=== PATIENT | female | born 1950 | race Caucasian/White ===

== ENCOUNTER → 2017-07-10 10:19 | Outpatient (CLI) | payer MEDICARE, OTHER, SELFPAY ==
--- NOTE | 2017-07-10 10:23 | HPBI_ITS ---
MAMMOGRAPHY - BILATERAL SCREENING REASON FOR EXAM: Female, 66 years old. Routine annual screening examination. PERTINENT HISTORY: Non-contributory. TECHNIQUE: Digital bilateral breast julio (3D mammographic acquisition) in the CC and MLO projections. 2-D mediolateral oblique (MLO) and craniocaudad (CC) views of both breasts were obtained. CAD: Full Field Digital Mammography with Computer Added Detection was performed. COMPARISON: Comparison is made with prior study dated March 07, 2016 and November 17, 2014. FINDINGS: Breast Composition: The breasts are almost entirely fatty. There are no dominant masses or suspicious calcifications. Stable benign-appearing bilateral axillary lymph nodes. No other significant abnormalities are identified. There has been no significant change since the prior study. HPBI/SCREENING MAMM (CAD), BILAT IMPRESSION: Stable bilateral screening mammogram. Yearly follow-up mammogram recommended. (A) ASSESSMENT CATEGORY: BIRADS Category 2: Benign. A letter regarding these results will be sent to the patient by the facility within 30 days. Approximately 10% of breast cancers are not detected by mammography. A normal mammogram should not delay biopsy of a clinically suspicious abnormality. [id number] Electronically Signed: Robert Rascon MD at 11:40 EST Tel [phone], Service support ,
== END ==
PROVIDERS: Family Provider Internal Medicine; PCP Internal Medicine; Visit Provider Obstetrics & Gynecology
DX: Z12.31 Encounter for screening mammogram for malignant neoplasm of breast (principal)
CPT/HCPCS: 77063; 77067

== ENCOUNTER → 2017-07-10 13:58 | Outpatient (CLI) | payer MEDICARE, OTHER, SELFPAY ==
[2017-07-14 11:21] LABS: HPV Reflexed? NOT INDICATED
== END ==
PROVIDERS: Visit Provider Obstetrics & Gynecology
DX: Z12.31 Encounter for screening mammogram for malignant neoplasm of breast (principal); Z12.4 Encounter for screening for malignant neoplasm of cervix
CPT/HCPCS: 77063; 77067; 88175; G0145

== ENCOUNTER → 2018-07-19 09:54 | Outpatient (CLI) | payer MEDICARE, OTHER, SELFPAY ==
--- NOTE | 2018-07-19 10:00 | BD_ITS ---
STUDY: DUAL ENERGY X-RAY ABSORPTIOMETRY / DXA REASON FOR EXAM: Female, 67 years old. The patient is postmenopausal. Loss of height. TECHNIQUE: Bone Mineral Density (BMD) measurements of lumbar spine and bilateral hips were obtained. COMPARISON: Comparison is made with prior examination dated August 06, 2008. FINDINGS: Lumbar Spine (L1-L4): g/cm2 (1.544) / T-score (3.2) / Z-score (4.8) Findings are suggestive of normal bone density with a low fracture risk. Left Femur Total: g/cm2 (1.034) / T-score (0.2) / Z-score (1.5) Left Femoral Neck: g/cm2 (1.039) / T-score (0.0) / Z-score (1.5) Right Femur Total: g/cm2 (1.122) / T-score (0.9) / Z-score (2.2) Right Femoral Neck: g/cm2 (0.982) / T-score (-0.4) / Z-score (1.1) The T-Scores on the most recent prior examination were: Lumbar Spine (L1-L4): There has been improvement of bone density since the previous examination. Left Femur Total: which represents a worsening of 8.6%. Right Femur Total: which represents a worsening of 5%. BD/Dexa Bone Density Study IMPRESSION: The patient is considered normal as outlined below according to World Olu Organization (WHO) criteria with a low fracture risk. There has been worsening of bone density since the previous examination. Reference Information: The T-score is the number of standard deviations above or below the standard which is normal for young adults at their peak bone mineral density. The World Health Organization (WHO) interprets the T-scores as follows: Above -1 Normal bone density Between -1 and -2.5 Osteopenia Equal to / or below -2.5 Osteoporosis As a practical clinical guideline, osteopenia may be graded as follows: Mild -1 through -1.5 Moderate -1.6 through -2.0 Severe -2.1 through -2.4 The Z-score is the number of standard deviations above or below age-matched controls. A Z-score of less than -1.5 would be considered abnormal. References: 1. NIH Osteoporosis and Related Bone Diseases http://www.osteo.org 2. International Society for Clinical Densitometry http://www.iscd.org 3. National Osteoporosis Foundation http://www.nof.org Electronically Signed: Robert Rascon, at 9:19 EST , Service support ,
== END ==
PROVIDERS: Family Provider Internal Medicine; PCP Internal Medicine; Visit Provider Orthopaedic Surgery
DX: M85.88 Other specified disorders of bone density and structure, other site (principal)
CPT/HCPCS: 77080

== ENCOUNTER 2019-01-02 23:50 | Emergency (ER) | payer MEDICARE, OTHER, SELFPAY ==
[2019-01-02 23:52] VITALS: BP 156/88; PULSE 83; RESP 18; TEMP 35.8; BMI 27.5
--- NOTE | 2019-01-03 00:17 | CT_ITS ---
STUDY: CT ABDOMEN AND PELVIS WITH CONTRAST REASON FOR EXAM: Female, 68 years old. left lower quadrant pain. RADIATION DOSAGE (If Supplied By Facility): CTDIvol = ( 15.14 ) mGy, DLP = ( 870.06 ) mGycm TECHNIQUE: Transaxial images were obtained from the dome of the diaphragm to the symphysis pubis without oral contrast. 100 IV Isovue 370 was administered. Sagittal and coronal images were reconstructed. Individualized dose optimization techniques were used for this CT. COMPARISON: None. FINDINGS: The visualized lung bases are unremarkable. The visualized portions of the heart are within normal limits. Normal liver. Normal gallbladder and extrahepatic biliary system. Normal spleen. Normal pancreas. Normal bilateral adrenal glands. Normal right kidney. There is mild left-sided hydronephrosis and hydroureter probably due to recently passed stone. There is perirenal fat stranding may represent pyelonephritis. Normal visualized stomach. Normal small intestine. Normal colon. The appendix is visualized and appears normal. There is diffuse atherosclerotic calcification of the abdominal aorta, without a demonstrated aneurysm. Normal inferior vena cava. Normal retroperitoneum. Normal urinary bladder. Normal abdominal wall. There are diffuse degenerative changes of the visualized lumbar spine. CT/Abdomen/Pelvis W IV Cont ONLY IMPRESSION: There is mild left-sided hydronephrosis and hydroureter probably due to recently passed stone. There is perirenal fat stranding may represent pyelonephritis. Electronically Signed: Jose Gloria, at 1:48 EDT Tel , Service support ,
[2019-01-03] MEDS: Ondansetron 4 MG/2 ML Vial IV (00:30)
[2019-01-03 00:32] LABS: Mucous, Urine 0 SEEN /hpf (<or=2+)
[2019-01-03 00:33] LABS: Absolute Lymphocyte Count 2.09 X10^3/uL (0.83-4.51); Absolute Neutrophil Count 11.6 X10^3/uL (2.0-7.7); Basophil# 0.07 X10^3/uL; Basophil% 0.5 % (0-1); Eosinophil# 0.21 X10^3/uL; Eosinophils% 1.4 % (0-5); Hematocrit 42.6 % (37-47); Hemoglobin 14.1 g/dL (12.0-15.0); Lymphocyte # 2.09 X10^3/ul (4.0); Lymphocyte % 14.3 % (19-41); Mean Corp Hgb Conc 33.1 g/dL (32-36); Mean Corpuscular Hgb 29.7 pg (27.0-32.0); Mean Corpuscular Volume 89.9 fL (81-99); Mean Platelet Vol. 9.3 fl (6.2-12.0); Monocyte# 0.62 X10^3/uL; Monocyte% 4.2 % (0-10); NRBC Flagged by Analyzer 0 % (0-5); Neutrophil # 11.57 X10^3/uL (2.7-7.7); Neutrophil % 79.1 % (47-70); Platelet Count 298 K/mm3 (150-450); RBC Distribution Width CV 15.9 % (11.6-14.6); RBC Distribution Width SD 53.1 fl (35.1-43.9); Red Blood Count 4.74 M/mm3 (4.2-5.4); White Blood Count 14.6 K/mm3 (4.4-11.0)
[2019-01-03 00:33] LABS: Color, Urine Yellow (Yellow); Glucose, Dipstick Normal (Normal); Ketone-Dipstick Negative (Negative); Leukocyte Esterase-Dipstick 25 /ul (Negative); Nitrite-Dipstick Negative (Negative); Occult Blood-Urine 50 /ul (Negative); Protein-Dipstick 15 mg/dl (Negative); Urine Bilirubin Dipstick Negative (Negative); Urine Clarity Clear (Clear); Urine Urobilinogen Normal (Normal)
--- NOTE | 2019-01-03 00:37 | ED.RN ---
PT DECLINED MORPHINE FOR NOW SAYING HER PAIN IMPROVED.
[2019-01-03 00:39] LABS: Squamous Epithelial Cells - UA 0-5 SEEN /hpf (5-10)
[2019-01-03 00:40] LABS: Bacteria RARE /hpf (None Seen); Red Blood Cells-Urine 0-5 SEEN /hpf (0-5); White Blood Cells 0-5 SEEN /hpf (0-5)
[2019-01-03 00:47] LABS: Anion Gap 5 (5-15); BUN 26 mg/dL (7-18); BUN/Creat Ratio 26.6 RATIO (10-20); Calcium,Total 8.8 mg/dL (8.5-10.1); Chloride 107 mmol/L (98-107); Creatinine, Serum 0.98 mg/dL (0.55-1.02); EST Glomerular Filtration Rate 60 mL/min (>60); Est Glom Filt Rate - Afr Amer 73 mL/min (>60); Glucose 138 mg/dL (74-106); Potassium 3.5 mmol/L (3.5-5.1); Sodium Level 139 mmol/L (136-145)
--- NOTE | 2019-01-03 01:48 | ED.VISSUMM ---
- ER Visit Summary Date of Service: 01/03/19 Chief Complaint: Left abdominal pain History of Present Illness: The patient is a 68 F who tells me that last evening she began to feel bloated felt like she is going to have a bowel movement and had discomfort on the left lower side of her abdomen. This persisted intermittently throughout the day is progressively gotten worse. She denies any urinary symptoms such as dysuria frequency or hematuria. No diarrhea no constipation. She states she cannot find a position of comfort. She is never had this type of discomfort before. She is had 2 prior colonoscopies that were negative except for polyps. Physical Examination: Afebrile vital signs stable Gen: Well-nourished well-developed Head: Normocephalic atraumatic Eyes: Perrl EOMI ENT: TMs clear no rhinorrhea moist mucous membranes Neck: Supple no lymphadenopathy no JVD nontender CVS: Regular rate rhythm no murmurs normal S1-S2 Respiratory: No distress clear to auscultation bilaterally chest nontender Abdomen: Soft minimally tender in the left lower quadrant. There is no guarding or rebound nondistended normal bowel sounds no masses Back: Nontender Extremity: Nontender no edema Skin: Normal color no rash Neuro: alert orientated ?3 CN II-XII intact normal strength sensation Psych: Normal affect normal mood Test Results: White count is slightly elevated 14.6. Hemoglobin 14.1. Glucose 130 BUN 26 creatinine 0.9. Urinalysis 0-5 white cells 2-5 red cells rare bacteria negative nitrates. CT the abdomen pelvis was ordered. This demonstrated some hydronephroureter and perinephric stranding. Emergency Department Course and Treatment: Patient did not wish to have morphine. She states her pain went away and she questions whether or not she needs the CT scan. I discussed this with her and her at the bedside. My recommendation is that we get the CT is if this is a kidney stone and she was experiencing pain from that it could go away and come back. Based on the CT results I have to say patient passed a kidney stone. Her symptoms resolved 10 to 15 minutes after urinating here in the department. She has no obvious signs of infection in the urine. And she is remained pain-free for well over 1 hour. Patient return if worsening or concerns follow-up with primary care as needed Impression: 1. Left kidney stone passed This note was generated with Dragon dictation software. It may contain incorrect words, spelling, and punctuation that were not noted in review of the chart prior to signing ED Disposition - Plan for ED Patient: Instructions: KIDNEY STONE, Passed Referrals: Merry Campuzano MD [Primary Care Provider] - As Needed
[2019-01-03 02:13] VITALS: BP 136/70; PULSE 68; RESP 18; O2SAT 96
== END 2019-01-03 02:14 | disposition home or self-care (01) ==
PROVIDERS: Emergency Provider Emergency Medicine; Family Provider Internal Medicine; PCP Internal Medicine
DX: N13.2 Hydronephrosis with renal and ureteral calculous obstruction (principal)
CPT/HCPCS: 74177; 80048; 81001; 85025; 96374; 99285; Q9967; A4216; J2405

== ENCOUNTER 2019-03-13 05:21 | Inpatient (IN) | payer MEDICARE, OTHER, SELFPAY ==
[2019-02-27 13:08] VITALS: BP 141/86; PULSE 80; RESP 16; TEMP 36.3; O2SAT 97; BMI 27.0
--- NOTE | 2019-02-27 13:25 | SDCEKG_ITS ---
Test Reason : Blood Pressure : / mmHG Vent. Rate : 078 BPM Atrial Rate : 078 BPM P-R Int : 168 ms QRS Dur : 084 ms QT Int : 382 ms P-R-T Axes : -03 030 050 degrees QTc Int : 435 ms Normal sinus rhythm Normal ECG Confirmed by LUCRECIA JORDAN, CHINYERE ([id number]), editor map BARBARA LOGAN ([id number]) on 03/05/2019 11:30:12 AM Referred By: Toni Vazquez Confirmed By:CHINYERE SINGER MD
[2019-02-27 15:25] LABS: Absolute Lymphocyte Count 3.33 X10^3/uL (0.83-4.51); Absolute Neutrophil Count 6.4 X10^3/uL (2.0-7.7); Basophil# 0.08 X10^3/uL; Basophil% 0.7 % (0-1); Eosinophil# 0.24 X10^3/uL; Eosinophils% 2.2 % (0-5); Hematocrit 49.6 % (37-47); Hemoglobin 16.2 g/dL (12.0-15.0); Lymphocyte # 3.33 X10^3/ul (4.0); Mean Corp Hgb Conc 32.7 g/dL (32-36); Mean Corpuscular Hgb 30.2 pg (27.0-32.0); Mean Corpuscular Volume 92.4 fL (81-99); Monocyte% 5.6 % (0-10); NRBC Flagged by Analyzer 0 % (0-5); Neutrophil # 6.44 X10^3/uL (2.7-7.7); Neutrophil % 60.1 % (47-70); POSITIVE COUNT YES; RBC Distribution Width CV 14.3 % (11.6-14.6); Red Blood Count 5.37 M/mm3 (4.2-5.4); White Blood Count 10.7 K/mm3 (4.4-11.0)
[2019-02-27 15:26] LABS: Differential Indicated SCAN CRITERIA MET
[2019-02-27 16:04] LABS: Anion Gap 8 (5-15); BUN 27 mg/dL (7-18); BUN/Creat Ratio 39.2 RATIO (10-20); Calcium,Total 9.4 mg/dL (8.5-10.1); Chloride 107 mmol/L (98-107); Creatinine, Serum 0.69 mg/dL (0.55-1.02); EST Glomerular Filtration Rate 90 mL/min (>60); Est Glom Filt Rate - Afr Amer 109 mL/min (>60); Estimated Creatinine Clearance 47.14 ml/min; Glucose 75 mg/dL (74-106); Potassium 4.2 mmol/L (3.5-5.1); Sodium Level 139 mmol/L (136-145)
[2019-02-27 16:07] LABS: Platelet Estimate ADEQUATE (ADEQ)
--- NOTE | 2019-02-28 13:04 | HP.PCM_ITS ---
History and Physical Patient Name: Taryn Toscano : 1950 From: SAKINA MENDIETA PA-C DATE OF SURGERY: 03/13/2019 SCHEDULED PROCEDURE: left total hip arthroplasty HISTORY OF PRESENT ILLNESS: Preoperative history and physical exam was performed on February 27, 2019. This is a 68-year-old female who is been having ongoing pain in the left hip for over a year. She was having significant lower back pain with radicular symptoms. Patient underwent an MRI and ended up having a lumbar fusion on September 08, 2018. She is doing well from this procedure. The back pain and leg pain has significantly improved. She has surgical clearance from the spine doctor to proceed with the left total hip arthroplasty. She states she continues to have left groin pain. Patient only had temporary relief from an intra-articular hip injection. Patient's pain has been constant, aching, sharp. Pain is increased going up and down stairs, sitting, and walking. She has difficult time with activities of daily living including housework and shopping. She has also tried rest, ice with minimal relief. She has been through critical care technician with no relief in symptoms. She has been on oral medications consisting of oxycodone which she sees Dr. Serrano in pain management. Patient has been using a cane for ambulatory assistance. She denies previous surgery on the left hip. Currently denies chest pain, shortness of breath, fevers chills, recent infections. We are receiving surgical clearance from the primary care physician Dr. Campuzano. REVIEW OF SYSTEMS: ROS: Const: Reports weight change, but denies change in appetite and fever. CV: Denies chest pain, heart murmur and irregular heartbeat. Resp: Reports cough, but denies pneumonia, shortness of breath, tuberculosis and wheezing. GI: Reports heartburn, but denies constipation, diarrhea, nausea, rectal itching, bloody stools and vomiting. : Denies incontinence. Musculo: Reports pain and trouble walking, but denies leg swelling and weakness. Skin: Denies Raynaud's, history of shingles and tattoo. Neuro: Denies ambulatory dysfunction, dizziness, numbness/tingling and tremor. Psych: Denies anxiety, insomnia and stress. Fer/Lymph: Denies anemia, bleeding/bruising tendency and past transfusion. Reviewed and updated. PAST MEDICAL HISTORY: Advance Care Plan: Other Directive, POA Effective Date: 03/21/2018 Other Directive, LIVING WILL Effective Date: 03/21/2018 PMH: Medical Problems: Hypercholesterolemia, Migraines Accidents: Arm FX - (1958) Surgical Hx: Tonsillectomy - (1971) Back - (09/03/2018) Section - (1979) Anesthesia Complications: None Assistive Devices: Glasses - READING, Dentures, Cane Reviewed and updated. SOCIAL HISTORY: SH: Marital: .Occupation: [employer].Work Status: Retired.Hand Dominance: Right-handed. Personal Habits: Cigarette Use: Former.Smokeless Tobacco: Never Used Smokeless Tobacco.E-Cigarette Use: Never used.Alcohol: Occasionally.Drug Use: Denies Use.Enjoy Exercising: Never Exercises. Reviewed, no changes. VITALS: Ht: 62.25 Wt: 158lb Wt k.669 BMI: 28.7 BP: 148/92 Pulse: 89 Resp: 20 T: 98.2 T: 36.8C ALLERGIES: Sulfa - Itching Xylon - Itching Wellbutrin - Itching Augmentin Macadamia Nuts MEDICATIONS: Aspir-81 81 mg 1 by mouth every day, Atorvastatin Calcium 10 mg 1 by mouth every day, Nortriptyline HCL 50 mg 1 cap by mouth every night at bedtime, Metoprolol Succinate ER 25 mg 1 by mouth twice daily, Oxycodone HCL 5 mg 1 tab PO tid, Multi Vitamin Daily 1 by mouth every day, Stool Softener 100 mg 1 cap PO daily, Vitamin D3 1000 Unit 1 cap PO daily, Loratadine-D 24HR 10-240 mg 1 tab PO daily PRE-OP EXAM: General appearance:NORMAL Other: Eyes: Conjunctivae and lids: NORMAL Pupils: ERR Ears, Nose, Mouth, and Throat: NORMAL Other: Inspection of lips, teeth and gums: NORMAL Other: Neck: Examination of neck: no masses noted. Respiratory: Assessment of respiratory effort: NORMAL Other: Auscultation of lungs: clear to auscultation no wheezes, rhonchi or rales. Cardiovascular: Auscultation of heart: regular rate and rhythm, no murmurs, gallops or rubs. Gastrointestinal: Exam of abdomen: soft, nontender, nondistended bowel sounds present. PHYSICAL EXAMINATION: Patient walks with an antalgic gait. Left hip is cool to touch without erythema. She has left groin pain with range of motion. Range of motion left hip: Flexion 70, internal rotation 5, external rotation 20. Crepitus with range of motion. 5/5 strength. Sensation intact to light touch. IMAGING STUDIES: X-rays of the left hip reveal joint space narrowing with subchondral sclerosis, osteophyte formation consistent with severe osteoarthritis. The femoral head has progressive enlargement of subchondral cyst with collapse of the femoral head. IMPRESSION: 1. Severe left hip osteoarthritis 2. History of lumbar fusion on September 08, 2018 3. Hypercholesterolemia 4. History of migraines PLAN: Dr. Toni Vazquez did discuss and review with the patient all treatment options including surgical versus nonsurgical options. Patient does wish to proceed with the above-stated procedure. Potential risks, benefits, and complications of the procedure were discussed in detail including but not limited to , infection, nerve and blood vessel damage, persistent pain, numbness, tingling, paresthesias, blood clot, pulmonary embolism, and requirement for possible further surgery. The patient expressed full understanding and has no further questions for the doctor. Patient does agree to proceed with the above-stated procedure and has signed the surgery consent form. This dictation was created using voice recognition software. Phonetic and/or grammatical errors may exist. ___ I have re-examined the patient. There are no clinical changes since date of exam. ___ See progress notes for changes. ___ Dictated on admission Date: Time: Signature:
[2019-03-13] VITALS (12 sets, daily range): BP systolic 111–135; BP diastolic 52–86; PULSE 74–97; RESP 16; TEMP 35.9–36.8; O2SAT 94–100; BMI 27.0; BMI 27.1
[2019-03-13 06:16] LABS: Bedside Glucose 84 mg/dL (70-110)
[2019-03-13] MEDS: Lactated Ringers 1,000 ML 100 ML IV (06:33)
[2019-03-13] MEDS: Magnesium Sulfate 4gm/100mL 4 GM/100 ML IV.SOLN. IV (06:34)
[2019-03-13] MEDS: Gabapentin 600 MG Tablet PO (06:38)
[2019-03-13] MEDS: Scopolamine 1mg/72hr Patch 1 PATCH TRANSDERM. (06:38)
[2019-03-13] MEDS: Acetaminophen 500 MG Tablet 1000 MG PO ×3 (06:38→21:52)
[2019-03-13] MEDS: Cefazolin 2 GM in 0.9% Normal Saline 100 ML IV (07:14)
--- NOTE | 2019-03-13 08:10 | RAD_ITS ---
STUDY: X-RAY - PELVIS AND LEFT HIP REASON FOR EXAM: Female, 68 years old. Hip replacement TECHNIQUE: 3 intraoperative views of the pelvis and hip. COMPARISON: None. FINDINGS/ RAD/Hip 1 view with Pelvis IMPRESSION: 3 intraoperative views of the total left hip arthroplasty. Hardware appears intact and well aligned. No acute fracture or dislocation is identified. Please see operative report for further details. Electronically Signed: Ronn Munoz, at 13:34 EDT Tel , Service support ,
[2019-03-13] MEDS: dexAMETHasone 10 MG/ML Vial IV (08:28)
--- NOTE | 2019-03-13 08:45 | PCM.OPRPT ---
Report of Operation Date of Procedure: 03/13/19 Pre-Operative Diagnosis: Left hip primary osteoarthritis Post-Operative Diagnosis: Left hip primary osteoarthritis Surgery/Procedure Performed:: Minimally invasive direct anterior total hip replacement Description of Surgical Findings:: Stable hip with equal leg lengths confirmed radiographically inspector grain mill products: Anastacio Up inspector grain mill products: Adilia Gonzalez Type of Anesthesia:: Spinal Anesthesiologist: Christoph Chance Special Medications: 2 g Ancef, 1 g TXA at incision, 1 g TXA closure, 10 mg Decadron, joint cocktail (5 mg Duramorph, 30 mL of 0.5% Ropivicaine, 1000 units of epinephrine, 30 mg of Toradol) Specimen's removed: Bony cuts Estimated Blood Loss (mL): 150 Fluids Replaced: 800 mL crystalloid Description of Procedure: Components used: 1. Accolade 2 Granby femoral stem size 4 127? 2. Chato trident 2 acetabular shell size 48 mm 3. Chato X3 polyethylene D 4. Granby Biolox delta 36mm, 0mm femoral head Brief history operative indications: 68 yo F who failed conservative measures for their hip osteoarthritis. X-rays were consistent with osteoarthritis including joint space narrowing, osteophyte formation and subchondral cysts. Total hip replacement was discussed with the patient with risks and benefits including but not limited to blood loss, DVTs, PEs, neurovascular damage, dislocation, general risks of anesthesia including loss of life. Patient demonstrated an understanding medical clearance is obtained the patient was consented for surgery. Procedure: On the date of procedure the patient's L hip was marked in the preoperative area. Patient was then taken back to the operating room where anesthesia assumed control of the C-spine and airway and administered anesthetic. Patient was transferred to the operating table and placed in the supine position. The hips were placed at the break of the bed and a sacral bump was placed. The L lower extremity was then prepped out in a sterile fashion using chlorhexidine while the surgeon scrubbed. The PA was vital in the positioning of the patient. Upon reentering the room the L lower extremity was draped in the standard orthopedic fashion and the incision was marked. A timeout was called and everyone agreed upon the side, the site, the procedure be performed, antibody given, and patient's identity. At this time incision was made through skin, subcutaneous tissue, and fat down to fascia. The fascia was then incised and the TFL was retracted laterally. A retractor was placed on the lateral border of the femoral neck. Attention was directed to the inferior portion of the approach and all crossing vessels were identified and appropriately coagulated. A retractor was then placed on the medial portion of the femoral neck. The anterior capsule was then cleared of all soft tissue and then H shaped capsulotomy was made. The retractors were then placed inside the capsule. The femoral neck was identified and a cleanup cut was made. At this time a power corkscrew was used to remove the femoral head. Attention was then turned toward the acetabulum where the soft tissues were appropriately retracted and the acetabulum was sequentially reamed to 48 mm. A 48 mm cup was then selected and impacted into place. Acetabular liner was impacted into place and locking mechanism was verified. The position of the acetabular cup was then verified under live fluoroscopy. Attention was then turned to the femur. Soft tissue releases on the medial and lateral femoral neck were appropriately done, the leg was externally rotated and lateralized. A Campbell retractor was placed medially and proximally to the greater trochanter this allowed appropriate visualization and exposure of the femoral canal. Rongeour was then used to remove excess lateral bone. A canal finder and entry broach were used to open the proximal canal. Once we verified we were down the femoral canal we subsequently broached up to a size 4 femur. The appropriate neck was placed in the previously selected head was trialed with a 0 mm neck. Traction was pulled and the hip was reduced with internal rotation. Once it was appropriately reduced and stability was checked. There was minimal shuck, equal leg lengths and appropriate stability with hyperextension and external rotation as well as with 90? flexion and internal rotation. Fluoroscopy was then also used to verify the position of the components and leg lengths using the contralateral side for comparison. The trial components were then dislocated the proximal femur was again exposed and the components were removed from the wound. The final components were verified and opened. The wound was copiously irrigated out with normal saline. The acetabulum was checked for any residual debris. The final components were placed and impacted. Traction and internal rotation were again used to reduce the hip. After adequate reduction the hip remained stable with appropriate leg lengths. The final components were once again checked with live fluoroscopy and were found to be satisfactory. The wound was then copiously irrigated with normal saline once more, and hemostasis was obtained. Closure was then done using #1 Vicryl runner to close the fascia. A 2-0 vicryl interuppted sutures were used to close the subcutaneous skin. A 3-0 Monocryl and Steri-Strips were used for final skin closure. A Silverlon dressing was placed. Patient was awakened by anesthesia and transferred to the [facility]. Patient was then transferred to the PACU for recovery. Postoperative plan: Patient will get 24 hours postop antibiotics. Patient will get in-house physical therapy and will be weight-bear as tolerated. Patient will follow up in office in 2 weeks for a wound check and x-rays. - Complications No intraoperative complications - Admit VTE Documentation VTE Present on Admission: No VTE Mechan Device Prophylaxis: SCD's, Thigh High KAY Hose VTE Pharm Prophylaxis ordered?: Yes
[2019-03-13] MEDS: Lactated Ringers 1,000 ML 999 ML IV (09:35)
--- NOTE | 2019-03-13 09:45 | RAD_ITS ---
STUDY: X-RAY - PELVIS AND LEFT HIP REASON FOR EXAM: Female, 68 years old. Left hip replacement. TECHNIQUE: 2 views of the pelvis and hip. COMPARISON: Comparison is made with prior study done earlier today. FINDINGS: The patient status post left hip replacement. There is good alignment. Postoperative soft tissue changes. RAD/Hip Min 2 Views (Portable) IMPRESSION: Status post left hip replacement. There is good alignment. Postoperative soft tissue changes. Electronically Signed: Robert Rascon, at 14:07 EDT , Service support ,
[2019-03-13] MEDS: Lactated Ringers 1,000 ML 125 ML IV (12:43)
[2019-03-13] MEDS: Ensure Surgery 237 ML LIQUID PO ×2 (12:43→17:12)
[2019-03-13] MEDS: Cefazolin 1 GM/50 ML BAG IV ×2 (14:45→23:22)
[2019-03-13] MEDS: Aspirin 81 MG TAB.CHEW PO (17:12)
[2019-03-13] MEDS: Atorvastatin Calcium 10 MG Tablet PO (21:51)
[2019-03-13] MEDS: Nortriptyline 25 MG Capsule 50 MG PO (21:51)
[2019-03-13] MEDS: Metoprolol Tartrate 25 MG Tablet PO (21:51)
[2019-03-13] MEDS: Senna/Docusate Sodium 1 Tablet 2 TABLET PO (21:51)
[2019-03-14 02:00] VITALS: BP 117/46; PULSE 75; RESP 16; TEMP 36.6; O2SAT 95
[2019-03-14] MEDS: Acetaminophen 500 MG Tablet 1000 MG PO (05:30)
[2019-03-14 05:45] LABS: Hematocrit 38.4 % (37-47); Hemoglobin 12.5 g/dL (12.0-15.0); Mean Corp Hgb Conc 32.6 g/dL (32-36); Mean Corpuscular Hgb 30.1 pg (27.0-32.0); Mean Corpuscular Volume 92.5 fL (81-99); Mean Platelet Vol. 10.2 fl (6.2-12.0); Platelet Count 276 K/mm3 (150-450); RBC Distribution Width CV 13.7 % (11.6-14.6); RBC Distribution Width SD 46.5 fl (35.1-43.9); Red Blood Count 4.15 M/mm3 (4.2-5.4); White Blood Count 16.5 K/mm3 (4.4-11.0)
[2019-03-14 06:12] LABS: Anion Gap 8 (5-15); BUN 21 mg/dL (7-18); BUN/Creat Ratio 35.7 RATIO (10-20); Calcium,Total 8.4 mg/dL (8.5-10.1); Chloride 112 mmol/L (98-107); Creatinine, Serum 0.59 mg/dL (0.55-1.02); EST Glomerular Filtration Rate 108 mL/min (>60); Est Glom Filt Rate - Afr Amer 131 mL/min (>60); Estimated Creatinine Clearance 47.14 ml/min; Glucose 96 mg/dL (74-106); Potassium 3.6 mmol/L (3.5-5.1); Sodium Level 143 mmol/L (136-145)
[2019-03-14 08:00] VITALS: BP 127/60; BP 130/45; PULSE 80; PULSE 84; RESP 16; RESP 24; TEMP 36.8; TEMP 37.3; O2SAT 100; O2SAT 97
[2019-03-14 08:05] VITALS: PULSE 92
[2019-03-14 08:11] VITALS: PULSE 92
[2019-03-14] MEDS: Famotidine 20 MG Tablet PO (08:11)
[2019-03-14] MEDS: Aspirin 81 MG TAB.CHEW PO (08:11)
[2019-03-14] MEDS: Metoprolol Tartrate 25 MG Tablet PO (08:11)
[2019-03-14] MEDS: Senna/Docusate Sodium 1 Tablet 2 TABLET PO (08:11)
[2019-03-14] MEDS: Multivitamins,Therapeutic Tablet 1 TABLET PO (08:11)
[2019-03-14] MEDS: Loratadine 10 MG Tablet PO (08:11)
[2019-03-14] MEDS: Ensure Surgery 237 ML LIQUID PO (08:13)
--- NOTE | 2019-03-14 09:24 | PN.ORTHO_ITS ---
Subjective: The patient was sitting in bedside chair upon examination. Patient denies any chest pain, shortness of breath, dizziness, lightheadedness, nausea or vomiting, or calf pain. Pain is controlled on medications. No adverse overnight events. Patient has tolerated physical therapy well but does states she is sore in the left hip. Medications have been helpful. Patient does wish to go home today. Objective: Vital signs stable and afebrile. Patient is able to plantarflex and dorsiflex actively. Sensation is intact to light touch to saphenous, sural, superficial and deep peroneal, and tibial distribution. Dressing is clean dry and intact. Negative Homans bilaterally, negative signs and symptoms of DVT. - Physical Exam Vitals/I&O's: Vital Signs Temp Pulse Resp BP Pulse Ox 99.1 F 92 16 130/45 H 100 03/14/19 08:00 03/14/19 08:11 03/14/19 08:00 03/14/19 08:00 03/14/19 08:00 Oxygen Flow Rate (L/min) 6 Oxygen Delivery Method Room Air Weight: 71.8 kg Body Mass Index (BMI) 27.1 Intake and Output for Last 24 Hours 03/12/19 03/13/19 03/14/19 23:59 23:59 23:59 Intake Total 4338.25 / 4338.25 116.5 / 116.5 Output Total 1999 Balance 2338.25 / 2338.25 116.5 / 116.5 General: Alert, Oriented x3, Cooperative, No apparent distress Laboratory Results 03/14/19 05:12: WBC 16.5 H, RBC 4.15 L, Hgb 12.5, Hct 38.4, MCV 92.5, MCH 30.1, MCHC 32.6, RDW Std Deviation 46.5 H, RDW Coeff of Lynne 13.7, Plt Count 276, MPV 10.2 03/14/19 05:12: Sodium 143, Potassium 3.6, Chloride 112 H, Carbon Dioxide 23.0, Anion Gap 8, BUN 21 H, Creatinine 0.59, Estim Creat Clear Calc 47.14, Est GFR (MDRD) Af Amer 131, Est GFR (MDRD) Non-Af 108, BUN/Creatinine Ratio 35.7 H, Glucose 96, Calcium 8.4 L Current Medications Acetaminophen (Tylenol) 1,000 mg PO Q8 [facility] Last Admin: 03/14/19 05:30 Dose: 1,000 mg Documented by: Aspirin (Aspirin, Baby) [facility] Last Admin: 03/14/19 08:11 Dose: 81 mg Documented by: Atorvastatin Calcium (Lipitor) 10 mg PO QHS [facility] Last Admin: 03/13/19 21:51 Dose: 10 mg Documented by: Cholecalciferol (Vitamin D) 1,000 unit [facility] Last Admin: 03/14/19 08:11 Dose: 1,000 unit Documented by: Docusate Sodium (Colace) 100 mg PO DAILY [facility] Last Admin: 03/14/19 08:12 Dose: Not Given Documented by: Enteral Nutritional Formula (Ensure Surgery) 237 ml PO TIDCM [facility] Last Admin: 03/14/19 08:13 Dose: 237 ml Documented by: Famotidine (Pepcid) 20 mg PO DAILY [facility] Last Admin: 03/14/19 08:11 Dose: 20 mg Documented by: Ketorolac Tromethamine (Toradol) 15 mg IV Q6H PRN PRN PRN Reason: Pain Score 1-5/10 Stop: 03/15/19 07:01 Loratadine (Claritin) 10 mg PO DAILY [facility] Last Admin: 03/14/19 08:11 Dose: 10 mg Documented by: Meloxicam (Mobic) 7.5 mg PO BID [facility] Metoprolol Tartrate (Lopressor (Beta Janet)) 25 mg PO BID [facility] Last Admin: 03/14/19 08:11 Dose: 25 mg Documented by: Morphine Sulfate () 2 - 4 mg IV Q2H PRN PRN PRN Reason: Pain Score 4-10/10 Morphine Sulfate () 2 - 4 mg IV Q2H PRN PRN PRN Reason: Pain Score 4-10/10 Multivitamins (Multivitamin) 1 tablet PO DAILY@0800 [facility] Last Admin: 03/14/19 08:11 Dose: 1 tablet Documented by: Nortriptyline HCl (Pamelor) 50 mg PO DAILY@2200 [facility] Last Admin: 03/13/19 21:51 Dose: 50 mg Documented by: Ondansetron HCl (Zofran) 4 mg IV Q8H PRN PRN PRN Reason: NAUSEA Oxycodone HCl (Oxyir) 5 - 10 mg PO Q4H PRN PRN PRN Reason: Pain Score 4-10/10 Promethazine HCl (Phenergan) 12.5 mg IM Q6H PRN PRN; Protocol PRN Reason: NAUSEA/VOMITING Senna/Docusate Sodium (Senokot-S, Lisseth-Colace) 2 tablet PO BID PRANAV Last Admin: 03/14/19 08:11 Dose: 2 tablet Documented by: Sodium Chloride () 10 - 40 ml IV UD PRN PRN Reason: SALINE FLUSH Medical Necessity - Tobacco Use Smoking Status: Former smoker Assessment/Plan 1. S/P left direct anterior total hip arthroplasty POD #1 2. Continue Pain Medications: Tylenol and OxyIR. Patient does see Dr. Serrano pain management but we will manage the oxycodone for the first 6 weeks postoperatively. 3. DVT Prophylaxis: Aspirin 81 mg twice daily for 4 weeks postoperatively 4. PT/OT: Weightbearing as tolerated 5. H & H: 12.5/38.4, asymptomatic 6. Reactive leukocytosis: Currently 16.5, afebrile. Patient did receive Decadron intraoperatively 7. Encouraged Incentive Spirometry 8. Disposition: Plan will be for discharge home today, patient is orthopedically stable. Prescriptions will be E scribed to [facility] [place]. Patient will follow-up per postop instructions. Postoperative outpatient physical therapy has been established.
--- NOTE | 2019-03-14 09:34 | PCM.DC.THR ---
Discharge Diet: No Restrictions Discharge Activity: May Not Drive - while taking narcotic pain medications. May shower in (days): 1 - Turn dressing away from water. Must be intact to skin Ice area for (Minutes): 20 - Every 1-2 hours while awake Weight Bearing Status: Weight bearing as tolerated Elevate: Operative Extremity Additional Activity Instructions:: Wear elastic stockings for 2 weeks. DO NOT use alcohol with narcotic pain medication. DO NOT make important decisions while taking narcotic medication. If you have problems with taking your medication (rash, itching, nausea, etc.) call the office at once. Call your doctor if your incision/area has: Increased Pain/ Swelling, Increased Redness, Foul Smelling Discharge Call your doctor if you observe: Fever of 101 or Higher Remove Dressing in (days):: 4 - Okay to remove dressing on March 18, 2019 Additional Instructions: Follow orthopedic postop instructions Allergies/Adverse Reactions: Allergies amoxicillin [From Augmentin] Allergy (Verified 03/13/19 05:57) Itching bupropion [From Zyban] Allergy (Verified 03/13/19 05:57) Itching clavulanic acid [From Augmentin] Allergy (Verified 03/13/19 05:57) Itching hydrocodone [From Xylon 10] Allergy (Verified 03/13/19 05:57) Unknown ibuprofen [From Xylon 10] Allergy (Verified 03/13/19 05:57) Unknown macadamia nut oil Allergy (Verified 03/13/19 05:57) Anaphylaxis Sulfa (Sulfonamide Antibiotics) Allergy (Verified 03/13/19 05:57) Unknown Medications to take at Discharge Atorvastatin Calcium 10 mg PO QHS 01/03/19 Metoprolol Tartrate 25 mg PO BID 01/03/19 Nortriptyline HCl 50 mg PO DAILY 01/03/19 Cholecalciferol (Vitamin D3) [Vitamin D3] 1,000 unit PO DAILY 02/27/19 Docusate Sodium [Stool Softener] 100 mg PO DAILY 02/27/19 Loratadine [Allergy] 10 mg PO DAILY 02/27/19 Multivitamin [Daily Multiple Vitamin] 1 ea PO DAILY 02/27/19 Acetaminophen [Tylenol] 1,000 mg PO Q8 #100 tab 03/14/19 Aspirin [Aspirin, Baby] 81 mg PO BIDCM 14 Days tab.chew 03/14/19 Famotidine [Pepcid] 20 mg PO DAILY #30 tab 03/14/19 Meloxicam [Mobic] 7.5 mg PO BID #60 tab 03/14/19 Oxycodone [Oxyir] 5 - 10 mg PO Q4H PRN PRN 4 Days #48 tablet 03/14/19 The following prescriptions were given: Meloxicam [Mobic] 7.5 mg PO BID #60 tab Transmission Status: Pending to [facility] Oxycodone [Oxyir] 5 - 10 mg PO Q4H PRN PRN 4 Days #48 tablet PRN Reason: Pain Score 4-02/21 Transmission Status: Sent to [facility] Famotidine [Pepcid] 20 mg PO DAILY #30 tab Transmission Status: Pending to [facility] Acetaminophen [Tylenol] 1,000 mg PO Q8 #100 tab Transmission Status: Pending to [facility] Primary Care Physician: Merry Campuzano MD [Primary Care Provider] - Test Results: Test results from this visit will be discussed in further detail at your follow-up appointment, if applicable. Please Follow Up With: [facility] When: 03/18/19 @ 1:00 pm Please Follow Up With: Sam Vaca PA-C When: 03/27/19 @ 11:00 am
--- NOTE | 2019-03-14 09:35 | CASEMGMT ---
CHARITO ASIF Face to Face with patient for initial transition planning/care coordination assessment. RN CM introduced self and role at [facility]. Patient sitting in chair, alert and oriented. Patient willing to participate in assessment and is able to answer all questions appropriately. Care providers, pharmacy, and demographics verified. Patient wishes to discharge home and is schedule for outpatient therapy at [facility] on Monday. Patient states she has no further needs or concerns at this time. CM to follow for discharge planning needs that may arise. PCP: Tatianna Specialists: farhan Vazquez; Renay Katz; Lyudmila Serrano Preferred Pharmacy: [facility] Insurance: [facility] [place] Prescription Benefit: yes Living Will/HPOA: yes, Dnailo Toscano LNOK: Living Arrangements: Patient lives with in single story home with 2 steps to enter the home. Transportation: DME/HHC: Patient states she has shower chair, raised toilet, cane, walker, grab bars at home. Patient is scheduled for outpatient therapy for Monday at [facility] Disposition Plan: Patient to discharge home with outpatient therapy, family support, and follow-up plans in place. Breonna RIVERA, RN, CM
[2019-03-14 11:31] VITALS: BP 114/53; PULSE 78; RESP 18; TEMP 36.7; O2SAT 93
== END 2019-03-14 11:45 | disposition home or self-care (01) | DRG 470 ==
LOC: ACINP 05:43 → MS3 07:21
PROVIDERS: Admitting Provider Specialist; Family Provider Internal Medicine; PCP Internal Medicine; Referring Provider Specialist; Visit Provider Specialist
PROC: 0SRB04A Replacement of Left Hip Joint with Ceramic on Polyethylene Synthetic Substitute, Uncemented, Open Approach (ICD-10-PCS; CPT 27284; principal; 2019-03-13 06:50)
DX: M16.12 Unilateral primary osteoarthritis, left hip (principal); E78.00 Pure hypercholesterolemia, unspecified; Z98.1 Arthrodesis status
CPT/HCPCS: 36415; 73501; 73502; 76000; 80048; 82962; 85025; 85027; 87081; 93005; 97110; 97162; 97166; 97530; 99251; C1776; J7120; G0463

== ENCOUNTER 2020-07-16 10:19 | Outpatient (RCR) | payer MEDICARE, OTHER, SELFPAY ==
[2019-03-13 10:44] VITALS: BMI 27.1
[2020-07-16] MEDS: COVID-19 VACC, MRNA(PFIZER)/PF 30 MCG/0.3 ML SYRINGE IM (18:44)
[2020-08-06] MEDS: COVID-19 VACC, MRNA(PFIZER)/PF 30 MCG/0.3 ML SYRINGE IM (18:31)
== END 2020-07-16 23:59 ==
LOC: IMMUN 10:19
PROVIDERS: PCP Internal Medicine; Referring Provider Family Medicine; Visit Provider Family Medicine
DX: Z23 Encounter for immunization (principal)
CPT/HCPCS: 0001A; 0002A; 91300

== ENCOUNTER → 2021-02-04 10:55 | Outpatient (CLI) | payer MEDICARE, OTHER, SELFPAY ==
--- NOTE | 2021-02-04 10:58 | BI_ITS ---
MAMMOGRAPHY - BILATERAL SCREENING REASON FOR EXAM: Female, 70 years old. Routine annual screening examination. PERTINENT HISTORY: Non-contributory. TECHNIQUE: Digital bilateral breast robb (3D mammographic acquisition) in the CC and MLO projections. 2-D mediolateral oblique (MLO) and craniocaudad (CC) views of both breasts were obtained. CAD: Full Field Digital Mammography with Computer Added Detection was performed. COMPARISON: Comparison is made with prior study 07/10/2017 and 03/07/2016. FINDINGS: Breast Composition: The breasts are almost entirely fatty. There are no dominant masses or suspicious calcifications. Stable small benign-appearing bilateral axillary lymph nodes. No other significant abnormalities are identified. There has been no significant change since the prior study. BI/SCRN MAMM (CAD)W/ROBB BILAT IMPRESSION: Stable bilateral screening mammogram. Yearly follow-up mammogram recommended. (A) ASSESSMENT CATEGORY: BIRADS Category 2: Benign. A letter regarding these results will be sent to the patient by the facility within 30 days. Approximately 10% of breast cancers are not detected by mammography. A normal mammogram should not delay biopsy of a clinically suspicious abnormality. [id number] Electronically Signed: Robert Rascon MD at 12:08 EDT , Service support ,
== END ==
PROVIDERS: PCP Internal Medicine; Visit Provider Internal Medicine
DX: Z12.31 Encounter for screening mammogram for malignant neoplasm of breast (principal)
CPT/HCPCS: 77063; 77067

== ENCOUNTER 2022-02-23 05:23 | Day surgery (SDC) | payer MEDICARE, OTHER, SELFPAY ==
--- NOTE | 2022-02-01 19:12 | HP.PCM_ITS ---
History and Physical History and Physical [facility] Patient Name: Taryn Toscano : 1950 From:? SAKINA MENDIETA PA-C? DATE OF SURGERY:? 02/23/2022 SCHEDULED PROCEDURE:? right total hip arthroplasty HISTORY OF PRESENT ILLNESS: Preoperative history and physical exam was performed on January 31, 2022.? This is a 71-year-old female who has had ongoing pain in the right hip for the past 6 months.? Pain can reach as high as a 9/10.? Pain is intermittent, aching, sharp, stabbing, sore.? Pain is increased with going up and down stairs and walking.? Patient does complain of pain in the right groin.? Denies any numbness and tingling in bilateral lower extremities.? Patient has difficulty with activities of daily living including heavy cleaning and walking any long distance.? He states the pain does awaken him at night.? Patient has tried previous treatment including Aleve with no relief in symptoms and tramadol.? Denies previous surgery on the right hip.? He has used a cane for ambulatory assistance.? We are obtaining surgical clearance from the patient's primary care physician Dr. Campuzano.? Patient has undergone a previous left total hip arthr oplasty by Dr. Toni Vazquez on March 13, 2019.? After failing conservative measures and discussing all treatment options with Dr. Toni Vazquez, the patient does wish to proceed with a right total hip arthroplasty.? Currently denies any chest pain, shortness of breath, fevers chills or recent infections.? Has medical history pertinent for hypercholesterolemia, migraines and previous kidney stones denies any previous pulmonary embolism or DVT. REVIEW OF SYSTEMS: ROS: Const: Reports weight change, but denies change in appetite and fever. CV: Denies chest pain, heart murmur and irregular heartbeat. Resp: Reports cough, but denies pneumonia, shortness of breath, tuberculosis and wheezing. GI: Reports heartburn, but denies constipation, diarrhea, nausea, rectal itching, bloody stools and vomiting. : Denies incontinence. Musculo: Reports pain and trouble walking, but denies leg swelling and weakness. Skin: Denies Raynaud's, history of shingles and tattoo. Neuro: Denies ambulatory dysfunction, dizziness, numbness/tingling and tremor. Psych: Denies anxiety, insomnia and stress. Fer/Lymph: Denies anemia, bleeding/bruising tendency and past transfusion. Reviewed, no changes. PAST MEDICAL HISTORY: Advance Care Plan: Other Directive, POA Effective Date: 03/21/2018 Other Directive, LIVING WILL Effective Date: 03/21/2018 PMH: Medical Problems: Hypercholesterolemia, Migraines, Arthritis, Kidney Stones Accidents: Arm FX - (1958) Surgical Hx: Tonsillectomy - (1971) Back - (09/03/2018) Section - (1979) LT THR - (03/13/2019) SAW @ [facility] Anesthesia Complications: None Assistive Devices: Glasses - READING, Dentures, Cane Reviewed, no changes. SOCIAL HISTORY: SH: Marital: .Occupation: Retired.Work Status: Retired.Hand Dominance: Right- handed. Personal Habits:? Cigarette Use: Former.Smokeless Tobacco: Never Used Smokeless Tobacco.E-Cigarette Use: Never used.Alcohol: Occasionally.Drug Use: Denies Use.Enjoy Exercising: Exercises 1-3 X/Week. Reviewed, no changes. VITALS: Ht: 63.4 Wt: 165lb Wt k.844 BMI: 28.9 BP: 134/82 Pulse: 78 Resp: 14 T: 97.7 T: 36.5C Pain Level: 3 O2SatR: 100 ALLERGIES: Sulfa - Itching Augmentin Macadamia Nuts Zyban? MEDICATIONS: Oxycodone HCL 5 mg 1-2 tab by mouth every 4 hours, Zofran 4 mg 1-2 by mouth every 8 as needed nausea, Famotidine 20 mg 1 by mouth every day, Tramadol HCL 50 mg 1 by mouth every 6 hours as needed pain, Aspir-81 81 mg 1 by mouth every day, Atorvastatin Calcium 10 mg 1 by mouth every day, Nortriptyline HCL 50 mg 1 cap by mouth every night at bedtime, Metoprolol Succinate ER 25 mg 1 by mouth twice daily, Multi Vitamin Daily? 1 by mouth every day, Stool Softener 100 mg 1 cap PO daily, Meloxicam 7.5 mg 1 by mouth twice a day, Claritin 10 mg by mouth once daily, Sudafed Sinus Congestion 12 Hour 120 mg 1po qday, Vitamin D , Tylenol Extra Strength 500 mg 2 by mouth every 8 hours PRE-OP EXAM:? General appearance:NORMAL? ? ? Other: Eyes: Conjunctivae and lids: NORMAL? Pupils: ERR Ears, Nose, Mouth, and Throat: NORMAL? Other: Inspection of lips, teeth and gums: NORMAL? ?Other: Neck: Examination of neck: no masses noted. Respiratory: Assessment of respiratory effort: NORMAL? ?Other: ?Auscultation of lungs: clear to auscultation no wheezes, rhonchi or rales. Cardiovascular:? Auscultation of heart: regular rate and rhythm, no murmurs, gallops or rubs. PHYSICAL EXAMINATION: Patient does walk with an antalgic gait with use of cane.? Right hip is without erythema or signs of infection.? He has tenderness to palpation over the lateral hip.? Complains of groin pain with range of motion.? Range of motion right hip: Flexion 80 with obligatory external rotation, internal rotation neutral, external rotation 10.? Patient has a 3 mm shorter right leg when compared to the left.? 4/5 hip strength.? Sensation intact to light touch. IMAGING STUDIES: Previous x-rays of the right hip reveal joint space narrowing, subchondral sclerosis, osteophyte formation consistent with severe stage IV [id number] osteoarthritis.? When compared to previous x-rays this does show progression of the osteoarthritis. IMPRESSION: 1.? Severe right hip osteoarthritis 2.? Presence of left total hip arthroplasty: 2019 3.? Hypercholesterolemia 4.? Migraines 5.? History kidney stones PLAN: Dr. Toni Vazquez did discuss and review with the patient all treatment options including surgical versus nonsurgical options.? Patient does wish to proceed with the above-stated procedure.? Potential risks, benefits, and complications of the procedure were discussed in detail including but not limited to , infection, nerve and blood vessel damage, persistent pain, numbness, tingling, paresthesias, blood clot, pulmonary embolism, and requirement for possible further surgery.? The patient expressed full understanding and has no further questions for the doctor.? Patient does agree to proceed with the above-stated procedure and has signed the surgery consent form. We discussed the current risks associated with COVID 19.? This does include the risk of exposure while in the hospital.? Patient was reassured local hospitals have low infection rates and are taking all necessary precautions to avoid exposure to patients.? In addition, we discussed strategies that can be used to help limit exposure including those that limit the patient's time in the hospital.? Also using strategies to limit the patient's need for continued inpatient services after being discharged from the hospital.? Patient was notified that we will need to comply with any screening or testing the hospital wishes to perform or that surgery may be delayed for any positive results. This dictation was created using voice recognition software. Phonetic and/or grammatical errors may exist. ___? I have re-examined the patient.? There are no clinical changes since date of exam. ___? See progress notes for changes. ___? Dictated on admission Date: ? ? ?Time: Signature:
[2022-02-03 13:39] LABS: Absolute Lymphocyte Count 2.53 X10^3/uL (0.83-4.51); Absolute Neutrophil Count 5.7 X10^3/uL (2.0-7.7); Basophil# 0.07 X10^3/uL; Basophil% 0.8 % (0-1); Eosinophil# 0.34 X10^3/uL; Eosinophils% 3.6 % (0-5); Hematocrit 44.9 % (37-47); Hemoglobin 14.5 g/dL (12.0-15.0); Lymphocyte # 2.53 X10^3/ul (0.83-4.51); Lymphocyte % 27.1 % (19-41); Mean Corp Hgb Conc 32.3 g/dL (32-36); Mean Corpuscular Hgb 29.9 pg (27.0-32.0); Mean Corpuscular Volume 92.6 fL (81-99); Monocyte# 0.65 X10^3/uL; NRBC Flagged by Analyzer 0 % (0-5); Neutrophil # 5.68 X10^3/uL (2.7-7.7); Platelet Count 275 K/mm3 (150-450); RBC Distribution Width CV 13.2 % (11.6-14.6); RBC Distribution Width SD 44.8 fl (35.1-43.9); Red Blood Count 4.85 M/mm3 (4.2-5.4); White Blood Count 9.3 K/mm3 (4.4-11.0)
[2022-02-03 14:02] LABS: Magnesium 2.1 mg/dL (1.6-2.6)
[2022-02-03 14:04] LABS: Albumin, Serum 3.4 g/dL (3.2-5.0); Anion Gap 7 (5-15); BUN 26 mg/dL (7-18); BUN/Creat Ratio 30.1 RATIO (10-20); Calcium,Total 9.5 mg/dL (8.5-10.1); Chloride 103 mmol/L (98-107); Creatinine, Serum 0.86 mg/dL (0.55-1.02); EST Glomerular Filtration Rate 69 mL/min (>60); Est Glom Filt Rate - Afr Amer 83 mL/min (>60); Glucose 99 mg/dL (74-106); Potassium 3.9 mmol/L (3.5-5.1); Sodium Level 139 mmol/L (136-145)
[2022-02-23] VITALS (14 sets, daily range): BP systolic 87–144; BP diastolic 33–92; PULSE 77–97; RESP 16–18; TEMP 36.3–36.8; O2SAT 91–100; BMI 28.8
--- NOTE | 2022-02-23 | HIP_PTH ---
PATIENT: RENNY SILVERMAN LOC: [facility] U#:[id number] AGE/SX: 71/F ROOM: RE02/23/[address]: Dr. Toni Vazquez MD : 1950 BED: DIS: 02/23/2022 SPEC #: [id number] RECD: 02/23/22 13:25 STATUS: SARA REQ #: [id number] ARI: 02/23/22 00:[address]: Toni Vazquez DEPT: SURGICAL PATHOLOGY RECD BY: Miguel Oleary ENTERED: 02/23/22 13:26 SP TYPE: TOTAL HIP OTHR DR: Dr. Merry Campuzano MD Tissues: Hip, NOS Procedures: Decalcification bone/plaque Surgery Specimen Level IV HEADER OPERATION: ERAS, total hip anterior approach PRE-OP DIAGNOSIS: Right hip primary osteoarthritis TISSUE SUBMITTED: Bone and soft tissue right hip MICROSCOPIC DIAGNOSIS Bone and tissue of right hip, total hip resection: Degenerative joint disease. AM:jarod 02/28/2022 MICROSCOPIC DESCRIPTION Slides are reviewed. GROSS DESCRIPTION Received is one container labeled with the patient's name and designated bone and soft tissue right hip. The specimen consists of a santo femoral head measuring 4 x 4 x 4.5 cm. Also present in the container is a separate piece of bone consistent with portion of femoral neck measuring 3.5 x 3.5 x 1 cm. The articular surface displays prominent osteophyte formation and bone erosion. Also present in the specimen container are multiple irregular fragments of bone reamings measuring in aggregate 5 x 5.5 x 1 cm. A few small fragments of soft tissue are noted attached to the femoral neck measuring 1.5 x 1.5 x 0.3 cm. Metal Bumper sections are submitted in two cassettes as follows: 1 - soft tissue attached to the femoral head, 2 ? femoral head after decalcification. / SJ:jarod 02/23/2022 TC:5 CPT: 79452, 81539
[2022-02-23] MEDS: Gabapentin 600 MG Tablet PO (06:41)
[2022-02-23] MEDS: Acetaminophen 500 MG Tablet 1000 MG PO (06:41)
[2022-02-23] MEDS: Lactated Ringers 1,000 ML 999 ML IV ×2 (06:42→09:41)
--- NOTE | 2022-02-23 06:43 | PCM.OPRPT ---
Report of Operation Date of Procedure: 02/23/22 Pre-Operative Diagnosis: Right hip primary osteoarthritis Post-Operative Diagnosis: Right hip primary osteoarthritis Surgery/Procedure Performed:: Right minimally invasive direct anterior total hip replacement Description of Surgical Findings:: Stable hip with equal leg length Surgeon: Toni Vazquez customer operations representative: Foreign [place]aca Type of Anesthesia: Spinal Anesthesiologist: Romel Leal Special Medications: 2 g Ancef, 1 g TXA at incision, 1 g TXA closure, 10 mg Decadron, joint cocktail (5 mg Duramorph, 30 mL of 0.5% Ropivicaine, 1000 units of epinephrine, 30 mg of Toradol) Specimen's removed: Bony cuts Estimated Blood Loss (mL): 250 Fluids Replaced: 800 milliliters crystalloid Description of Procedure: Components used: 1. Insignia Arden femoral stem size 3 high offset 2. Arden trident 2 acetabular shell size 50 mm 3. Chato X3 polyethylene d 4. Chato Biolox delta 36mm, -2.5mm femoral head Brief history operative indications: 71 yo f who failed conservative measures for their hip osteoarthritis. X-rays were consistent with osteoarthritis including joint space narrowing, osteophyte formation and subchondral cysts. Total hip replacement was discussed with the patient with risks and benefits including but not limited to blood loss, DVTs, PEs, neurovascular damage, dislocation, general risks of anesthesia including loss of life. Patient demonstrated an understanding medical clearance is obtained the patient was consented for surgery. Procedure: On the date of procedure the patient's right hip was marked in the preoperative area. Patient was then taken back to the operating room where anesthesia assumed control of the C-spine and airway and administered anesthetic. Patient was transferred to the operating table and placed in the supine position. The hips were placed at the break of the bed and a sacral bump was placed. The right lower extremity was then prepped out in a sterile fashion using chlorhexidine while the surgeon scrubbed. The PA was vital in the positioning of the patient. Upon reentering the room the right lower extremity was draped in the standard orthopedic fashion and the incision was marked. A timeout was called and everyone agreed upon the side, the site, the procedure be performed, antibody given, and patient's identity. At this time incision was made through skin, subcutaneous tissue, and fat down to fascia. The fascia was then incised and the TFL was retracted laterally. A retractor was placed on the lateral border of the femoral neck. Attention was directed to the inferior portion of the approach and all crossing vessels were identified and appropriately coagulated. A retractor was then placed on the medial portion of the femoral neck. The anterior capsule was then cleared of all soft tissue and then H shaped capsulotomy was made. The retractors were then placed inside the capsule. The femoral neck was identified and a cleanup cut was made. At this time a power corkscrew was used to remove the femoral head. Attention was then turned toward the acetabulum where the soft tissues were appropriately retracted and the acetabulum was sequentially reamed to 50 mm. A 50 mm cup was then selected and impacted into place. Acetabular liner was impacted into place and locking mechanism was verified. The position of the acetabular cup was then verified under live fluoroscopy. Attention was then turned to the femur. Soft tissue releases on the medial and lateral femoral neck were appropriately done, the leg was externally rotated and lateralized. A Campbell retractor was placed medially and proximally to the greater trochanter this allowed appropriate visualization and exposure of the femoral canal. Rongeour was then used to remove excess lateral bone. A canal finder and entry broach were used to open the proximal canal. Once we verified we were down the femoral canal we subsequently broached up to a size 3 femur. The appropriate neck was placed in the previously selected head was trialed with a -2.5 mm neck. Traction was pulled and the hip was reduced with internal rotation. Once it was appropriately reduced and stability was checked. There was minimal shuck, equal leg lengths and appropriate stability with hyperextension and external rotation as well as with 90? flexion and internal rotation. Fluoroscopy was then also used to verify the position of the components and leg lengths using the contralateral side for comparison. The trial components were then dislocated the proximal femur was again exposed and the components were removed from the wound. The final components were verified and opened. The wound was copiously irrigated out with normal saline. The acetabulum was checked for any residual debris. The final components were placed and impacted. Traction and internal rotation were again used to reduce the hip. After adequate reduction the hip remained stable with appropriate leg lengths. The final components were once again checked with live fluoroscopy and were found to be satisfactory. The wound was then copiously irrigated with normal saline once more, and hemostasis was obtained. Closure was then done using #1 Vicryl runner to close the fascia. A 2-0 vicryl interuppted sutures were used to close the subcutaneous skin. A 3-0 Monocryl and Steri-Strips were used for final skin closure. A Silverlon dressing was placed. Patient was awakened by anesthesia and transferred to the rchemult. Patient was then transferred to the PACU for recovery. During the course of the procedure the physician receiving supervisor (PE) played a vital role. Their intimate knowledge of my steps in the procedure aided in safe and expedient completion of the procedure. The PE played a vital rolls in positioning particularly in obtaining the appropriate positioning of the sacral bump. The PE was also vital in the retraction of soft tissues during the exposure and especially the femoral work as this is a vital part of the procedure to prevent complications and fractures. The PE was also vital and protecting soft tissues during times of bony cuts and reaming. He also played a vital role in closure with my direct supervision. The PE was also important during reduction and dislocation of the joint and trials intraoperatively. Postoperative plan: Patient will get 24 hours postop antibiotics. Patient will get in-house physical therapy and will be weight-bear as tolerated. Patient will follow up in office in 2 weeks for a wound check and x-rays. Aspirin 81 mg twice daily. Complications No intraoperative complications Admit VTE Documentation VTE Present on Admission: No VTE Mechan Device Prophylaxis: SCD's and Thigh High KAY Hose VTE Pharm Prophylaxis ordered?: Yes
[2022-02-23 07:30] LABS: Bedside Glucose 90 mg/dL (74-106)
[2022-02-23] MEDS: Lactated Ringers 1,000 ML 75 ML IV (07:31)
[2022-02-23] MEDS: Cefazolin 2 GM in 0.9% Normal Saline 100 ML IV (07:36)
[2022-02-23] MEDS: dexAMETHasone 10 MG/ML Vial IV (07:55)
[2022-02-23] MEDS: TXA 1000mg in NS100 100ml (IVPB at Incision) 660 MG IV (07:55)
--- NOTE | 2022-02-23 08:28 | RAD_ITS ---
STUDY: X-RAY - PELVIS AND RIGHT HIP REASON FOR EXAM: Female, 71 years old. PAIN TECHNIQUE: 1 views of the pelvis and hip. COMPARISON: None. FINDINGS: Intraoperative imaging provided for right total hip replacement. RAD/Hip 1 view with Pelvis IMPRESSION: Intraoperative imaging provided for right total hip replacement. Electronically Signed: Robert Rascon MD at 14:41 EDT ,
[2022-02-23] MEDS: TXA 1000mg in NS100 100ml (IVPB at Closure) 660 MG IV (08:45)
--- NOTE | 2022-02-23 09:35 | RAD_ITS ---
STUDY: X-RAY - PELVIS AND RIGHT HIP REASON FOR EXAM: Female, 71 years old. teresa -- in PACU TECHNIQUE: 2 views of the pelvis and hip. COMPARISON: None. FINDINGS: The patient is status post right total hip replacement. There is good alignment. Postoperative soft tissue changes. RAD/Hip Min 2 Views (Portable) IMPRESSION: Status post right total hip replacement. There is good alignment. Electronically Signed: Robert Rascon MD at 14:50 EDT ,
[2022-02-23] MEDS: Lactated Ringers 1,000 ML 125 ML IV (11:28)
[2022-02-23] MEDS: Cefazolin 1 GM/50 ML BAG IV (15:30)
== END 2022-02-23 16:48 | disposition home or self-care (01) ==
LOC: SDC 05:26 → AC 05:26
PROVIDERS: Anesthesiology; PCP Internal Medicine; Referring Provider Specialist; Visit Provider Specialist
PROC: (CPT 27284; principal; 2022-02-23 07:05)
DX: M16.11 Unilateral primary osteoarthritis, right hip (principal); E78.00 Pure hypercholesterolemia, unspecified; F41.9 Anxiety disorder, unspecified; F32.A Depression, unspecified; G43.909 Migraine, unspecified, not intractable, without status migrainosus; M19.90 Unspecified osteoarthritis, unspecified site; F17.210 Nicotine dependence, cigarettes, uncomplicated; Z79.899 Other long term (current) drug therapy; Z79.82 Long term (current) use of aspirin; Z96.642 Presence of left artificial hip joint
CPT/HCPCS: 27130; 01214; 36415; 73501; 73502; 76000; 80048; 82040; 82962; 83735; 85025; 87081; 88305; 88311; 93005; 97162; C1776; J7120; J2405; J3475

== ENCOUNTER → 2023-07-14 | Outpatient (CLI) | payer MEDICARE, SELFPAY ==
--- NOTE | 2023-07-14 12:34 | BI_ITS ---
MAMMOGRAPHY - BILATERAL SCREENING REASON FOR EXAM: Female, 72 years old. Routine annual screening examination. PERTINENT HISTORY: Non-contributory. TECHNIQUE: Digital bilateral breast robb (3D mammographic acquisition) in the CC and MLO projections. 2-D mediolateral oblique (MLO) and craniocaudad (CC) views of both breasts were obtained. CAD: Full Field Digital Mammography with Computer Added Detection was performed. COMPARISON: Comparison is made with prior study dated February 04, 2021. FINDINGS: Breast Composition: The breasts are almost entirely fatty. There are no dominant masses or suspicious calcifications. Stable small benign-appearing bilateral axillary lymph nodes. No other significant abnormalities are identified. There has been no significant change since the prior study. BI/SCRN MAMM (CAD)W/ROBB BILAT IMPRESSION: Stable bilateral screening mammogram. Yearly follow-up mammogram recommended. (A) ASSESSMENT CATEGORY: BIRADS Category 2: Benign. A letter regarding these results will be sent to the patient by the facility within 30 days. Approximately 10% of breast cancers are not detected by mammography. A normal mammogram should not delay biopsy of a clinically suspicious abnormality. [id number] Electronically Signed: Robert Rascon MD at 13:30 EST ,
== END | disposition home or self-care (01) ==
LOC: OPBI 12:33
PROVIDERS: PCP Internal Medicine; Referring Provider Nurse Practitioner; Visit Provider Nurse Practitioner
DX: Z12.31 Encounter for screening mammogram for malignant neoplasm of breast (principal)
CPT/HCPCS: 77063; 77067